=== PATIENT | female | born 1960 | race Caucasian/White ===

== ENCOUNTER → 2016-10-22 | Outpatient (CLI) | payer BC ==
[2016-10-22 07:09] LABS: HEMOGLOBIN A1C 6.03 % (4.2-6.0)
[2016-10-22 07:10] LABS: BLOOD UREA NITROGEN 22 mg/dL (7-22); EST GLOMERULAR FILTRATION > 60 (>60 ml/min/1.73m(2))
[2016-10-22 07:11] LABS: CALCIUM 9.2 mg/dL (8.7-10.7); CHOL/HDL RATIO 3.41 RATIO (0-4.0); HDL CHOLESTEROL 48 mg/dL (40-150); SERUM CHOLESTEROL 164 mg/dL (120-200)
[2016-10-22 07:12] LABS: CREATININE, URINE 217.2 MG/DL (15-500)
== END ==
LOC: LAB 06:31
PROVIDERS: ATTEND Internal Medicine
DX: E11.9 Type 2 diabetes mellitus without complications (principal); E78.5 Hyperlipidemia, unspecified; I25.10 Atherosclerotic heart disease of native coronary artery without angina pectoris
CPT/HCPCS: 36415; 80053; 80061; 82043; 82550; 83036